=== PATIENT | male | born 1990 | race Caucasian/White ===

== ENCOUNTER 2021-01-10 18:01 | Emergency (ER) | payer OTHER ==
[~2021-01-10] VITALS: Ht 180.3 cm; Wt 104.8 kg
[2021-01-10] MEDS ORDERED: KETO10TA2 PO (21:47)
[2021-01-10] MEDS ORDERED: TAMS0.4C PO (21:47)
[2021-01-10] MEDS ORDERED: NASAL MIST126 ML NASAL (21:48)
== END 2021-01-10 21:50 | disposition home or self-care (01) ==
LOC: ER 18:01
DX: N23 Unspecified renal colic (principal)

== ENCOUNTER 2021-02-10 04:58 | Emergency (ER) | payer OTHER ==
[~2021-02-10] VITALS: Ht 182.9 cm; Wt 104.8 kg
[~2021-02-10 04:58] MED LIST: KETO10TA2 PO; NASAL MIST126 ML NASAL; TAMS0.4C PO
== END 2021-02-10 08:34 | disposition home or self-care (01) ==
LOC: ER 04:58
DX: M79.651 Pain in right thigh (principal)